=== PATIENT | female | born 1995 | race African-American/Black ===

== ENCOUNTER 2022-09-04 09:56 | Inpatient (IN) | payer MEDICAID ==
[~2022-09-04] VITALS: Ht 167.6 cm; Wt 66.5 kg
[2022-09-04] MEDS ORDERED: ARIP5TAB37 PO (10:08)
[2022-09-04] MEDS ORDERED: HYDR-3831 PO (10:08)
[2022-09-04] MEDS ORDERED: BUSP5TAB20 PO (10:08)
[2022-09-04] MEDS ORDERED: PROC5TAB54 PO (10:09)
[2022-09-04] MEDS ORDERED: BUPR-345 PO (10:09)
[2022-09-04] MEDS ORDERED: MIRT-89 PO (10:09)
[2022-09-04] MEDS ORDERED: PERP4TAB33 PO (10:49)
[2022-09-04] MEDS ORDERED: HYDR-4584 PO (10:49)
[2022-09-04] MEDS ORDERED: ATOM40CA9 PO (10:49)
[2022-09-04] MEDS ORDERED: TRIL8 PO (10:49)
[2022-09-04] MEDS ORDERED: BUPR-50 PO (10:49)
[2022-09-04] MEDS ORDERED: LAMO100 PO (10:49)
[2022-09-04 11:34] LABS: BASOPHILS % (AUTO) 0.4 % (0.0-2.0); EOSINOPHILS % (AUTO) 0 % (1.0-6.0); HEMATOCRIT 39.7 % (36-46); HEMOGLOBIN 13.3 g/dL (12.0-16.0); LYMPHOCYTES # (AUTO) 1.1 K/uL (1.0-4.8); LYMPHOCYTES % (AUTO) 20.7 % (22.0-44.0); MEAN CORPUSCULAR HEMOGLOBIN 30.9 pg (26.0-34.0); MEAN CORPUSCULAR HGB CONC 33.6 G/dL (31.0-37.0); MEAN CORPUSCULAR VOLUME 92 fL (80-100); MONOCYTES # (AUTO) 0.4 K/uL (0.1-1.0); MONOCYTES % (AUTO) 7.5 % (2.0-9.0); NEUTROPHILS # (AUTO) 3.8 K/uL (1.8-7.7); NEUTROPHILS % (AUTO) 71.4 % (40.0-70.0); PLATELET COUNT (AUTO) 274 K/uL (150-450); RED BLOOD CELL COUNT(AUTO) 4.32 MIL/uL (4.00-5.20); RED CELL DISTRIBUTION WIDTH 12.7 % (11.5-14.5)
[2022-09-04 11:36] LABS: COVID AG,FIA SOURCE NASAL SWAB
[2022-09-04 11:54] LABS: ANION GAP 5 mmol/L (8-16); CALCIUM, TOTAL 10.2 mg/dL (8.8-10.5); CARBON DIOXIDE 30 mmol/L (22-29); CHLORIDE 102 mmol/L (98-107); GLOMERULAR FILTR. RATE CALC > 60 mL/min (>60); GLUCOSE,RANDOM 98 mg/dL (70-110); SODIUM SERUM 137 mmol/L (136-145); UREA NITROGEN, BLOOD 7 mg/dL (7-18)
[2022-09-04 12:00] LABS: ALANINE AMINOTRANSFERASE 33 U/L (12-78); ALBUMIN 4.8 g/dL (3.4-5.0); ALKALINE PHOSPHATASE 138 U/L (46-116); ASPARTATE AMINOTRANSFERASE 22 U/L (15-37); BILIRUBIN,TOTAL 0.3 mg/dL (0.1-1.0); TOTAL PROTEIN, SERUM 8.6 g/dL (6.4-8.2)
[2022-09-04 12:26] LABS: AMPHET/METH SCREEN,URINE NEGATIVE (NEGATIVE); BARBITURATE SCREEN, URINE NEGATIVE (NEGATIVE); BENZODIAZEPINES SCREEN,URINE NEGATIVE (NEGATIVE); CANNABINOID SCREEN,URINE POSITIVE (NEGATIVE); COCAINE SCREEN,URINE NEGATIVE (NEGATIVE); METHADONE SCREEN, URINE NEGATIVE (NEGATIVE); OPIATE SCREEN,URINE NEGATIVE (NEGATIVE); PHENCYCLIDINE SCREEN,URINE NEGATIVE (NEGATIVE)
[2022-09-04] MEDS ORDERED: INFLUENZA VIRUS VACCINE QVS 2022-23 (6MO+)/PF 60 MCG/0.5 ML SYRINGE IM. ONE ×2 (17:30→20:15)
[2022-09-04] MEDS ORDERED: HALOPERIDOL 5 MG TABLET PO PRN (17:30)
[2022-09-04] MEDS ORDERED: ZOLPIDEM TARTRATE 10 MG TABLET PO PRN (17:30)
[2022-09-04 17:55] VITALS: BP 126/83
[2022-09-04] MEDS ORDERED: MELA5TAB40 PO (18:34)
[2022-09-04] MEDS: LORazepam 2 MG TABLET PO PRN ×2 (18:58→23:30)
[2022-09-04] MEDS ORDERED: POLYETHYLENE GLYCOL 3350 17 GM PACKET PO PRN (21:45)
[2022-09-05 05:40] VITALS: BP 125/88
[2022-09-05] MEDS ORDERED: ALBUTEROL SULFATE HFA 90 MCG/PUFF 8 GM INHALER IH PRN (07:30)
[2022-09-05] MEDS ORDERED: BACITRACIN 28 GM OINTMENT TP PRN (07:30)
[2022-09-05] MEDS ORDERED: PETROLATUM,WHITE 28 GM JELLY TP PRN (07:30)
[2022-09-05] MEDS ORDERED: BENZOCAINE/MENTHOL LOZENGE PO PRN (07:30)
[2022-09-05] MEDS ORDERED: DOCUSATE SODIUM 100 MG CAPSULE PO PRN (07:30)
[2022-09-05] MEDS ORDERED: MAGNESIUM HYDROXIDE SUSPENSION 30 ML UDCUP PO PRN (07:30)
[2022-09-05] MEDS ORDERED: LOPERAMIDE HCL 2 MG CAPSULE PO PRN (07:30)
[2022-09-05] MEDS ORDERED: IBUPROFEN 600 MG TABLET PO PRN (07:30)
[2022-09-05] MEDS ORDERED: MAG HYDROX/AL HYDROX/SIMETH ES 30 ML SUSPENSION UDCUP PO PRN (07:30)
[2022-09-05] MEDS ORDERED: ONDANSETRON HCL 4 MG TABLET PO PRN (07:30)
[2022-09-05] MEDS ORDERED: ACETAMINOPHEN 325 MG TABLET PO PRN (07:30)
[2022-09-05] MEDS ORDERED: CloNIDine HCL 0.1 MG TABLET PO PRN (07:30)
[2022-09-05] MEDS ORDERED: OMEPRAZOLE 20 MG CAPSULE PO PRN (07:30)
[2022-09-05 08:08] LABS: BASOPHILS % (AUTO) 0.4 % (0.0-2.0); EOSINOPHILS % (AUTO) 0 % (1.0-6.0); HEMATOCRIT 37.3 % (36-46); LYMPHOCYTES # (AUTO) 1.5 K/uL (1.0-4.8); LYMPHOCYTES % (AUTO) 23.5 % (22.0-44.0); MEAN CORPUSCULAR HEMOGLOBIN 31.9 pg (26.0-34.0); MEAN CORPUSCULAR HGB CONC 34.8 G/dL (31.0-37.0); MEAN CORPUSCULAR VOLUME 92 fL (80-100); MONOCYTES # (AUTO) 0.5 K/uL (0.1-1.0); MONOCYTES % (AUTO) 8.4 % (2.0-9.0); NEUTROPHILS # (AUTO) 4.4 K/uL (1.8-7.7); NEUTROPHILS % (AUTO) 67.7 % (40.0-70.0); PLATELET COUNT (AUTO) 281 K/uL (150-450); RED BLOOD CELL COUNT(AUTO) 4.07 MIL/uL (4.00-5.20); RED CELL DISTRIBUTION WIDTH 12.9 % (11.5-14.5)
[2022-09-05 08:22] VITALS: BP 128/83
[2022-09-05] MEDS ORDERED: POLYETHYLENE GLYCOL 3350 17 GM PACKET PO PRN (09:00)
[2022-09-05] MEDS ORDERED: BuPROPion HCL XL 150 MG ER TABLET PO SCH (10:00)
[2022-09-05] MEDS ORDERED: PERPHENAZINE 8 MG TABLET PO SCH ×2 (10:00→17:00)
[2022-09-05] MEDS ORDERED: ARIPiprazole 5 MG TABLET PO SCH (10:00)
[2022-09-05] MEDS: LamoTRIgine 100 MG TABLET PO SCH ×2 (10:57→16:12)
[2022-09-05] MEDS: BusPIRone HCL 5 MG TABLET PO SCH ×2 (10:58→16:12)
[2022-09-05] MEDS ORDERED: GUAN1TAB2 PO (11:17)
[2022-09-05] MEDS ORDERED: TraZODone HCL 50 MG TABLET PO PRN (12:30)
[2022-09-05] MEDS ORDERED: FLUTICASONE PROPIONATE 50 MCG/SPRAY 16 GM NASAL SPRAY NASAL PRN (13:00)
[2022-09-05 17:58] VITALS: BP 127/82
[2022-09-05] MEDS ORDERED: MIRTAZAPINE 15 MG TABLET PO SCH (21:00)
[2022-09-05] MEDS ORDERED: HydrOXYzine HCL 50 MG TABLET PO SCH (21:00)
[2022-09-05] MEDS ORDERED: MINERAL OIL 30 ML UDCUP PO SCH (21:00)
== END 2022-09-05 19:40 | disposition home or self-care (01) | DRG 753 ==
LOC: EMS 10:02 → B2S 17:17 → B3A 09-05 19:11
PROVIDERS: ADMIT Psychiatry & Neurology Psychiatry; ATTEND Psychiatry & Neurology Psychiatry
DX: F31.4 Bipolar disorder, current episode depressed, severe, without psychotic features (principal); R45.851 Suicidal ideations; F41.9 Anxiety disorder, unspecified; G47.00 Insomnia, unspecified; K59.00 Constipation, unspecified; Z20.822 Contact with and (suspected) exposure to COVID-19; Z79.899 Other long term (current) drug therapy; Z88.2 Allergy status to sulfonamides
CPT/HCPCS: 80053; 85025; 99285; G0480

== ENCOUNTER 2024-12-02 21:24 | Emergency (ER) | payer MEDICAID ==
[~2024-12-02] VITALS: Ht 170.2 cm; Wt 70.5 kg
[~2024-12-02 21:24] MED LIST: ARIP5TAB37 PO; BUPR-559 PO; BUSP5TAB20 PO; GUAN1TAB2 PO; HYDR-4584 PO; LAMO-24 PO; MIRT-89 PO; PERP4TAB33 PO; TRIL8 PO
[2024-12-02 21:50] LABS: APPEARANCE,URINE CLEAR (CLEAR); BILIRUBIN,URINE NEGATIVE (NEGATIVE); COLOR,URINE COLORLESS (YELLOW); GLUCOSE, URINE (UA) NEGATIVE (NEGATIVE); KETONES,URINE NEGATIVE (NEGATIVE); LEUKOCYTE ESTERASE ,URINE NEGATIVE (NEGATIVE); NITRATE,URINE NEGATIVE (NEGATIVE); OCCULT BLOOD,URINE NEGATIVE (NEGATIVE); PH,URINE 5.5 (5.0-8.0); PH,URINE DRUG SCREEN 5.5 (5.0-8.0); PROTEIN,URINE NEGATIVE (NEGATIVE); SPECIFIC GRAVITIY, URINE 1.002 (1.003-1.030); UROBILINOGEN,URINE <=1.0 mg/dL (<=1.0)
[2024-12-02 21:55] LABS: AMPHET/METH SCREEN,URINE NEGATIVE (NEGATIVE); BARBITURATE SCREEN, URINE NEGATIVE (NEGATIVE); BENZODIAZEPINES SCREEN,URINE NEGATIVE (NEGATIVE); CANNABINOID SCREEN,URINE POSITIVE (NEGATIVE); COCAINE SCREEN,URINE NEGATIVE (NEGATIVE); METHADONE SCREEN, URINE NEGATIVE (NEGATIVE); OPIATE SCREEN,URINE NEGATIVE (NEGATIVE); PHENCYCLIDINE SCREEN,URINE NEGATIVE (NEGATIVE)
[2024-12-02 21:57] LABS: BASOPHILS % (AUTO) 0.4 % (0.0-2.0); EOSINOPHILS % (AUTO) 0.3 % (1.0-6.0); HEMATOCRIT 36.8 % (36-46); HEMOGLOBIN 12.5 g/dL (12.0-16.0); LYMPHOCYTES # (AUTO) 1.6 K/uL (1.0-4.8); LYMPHOCYTES % (AUTO) 24.6 % (22.0-44.0); MEAN CORPUSCULAR HEMOGLOBIN 30.7 pg (26.0-34.0); MEAN CORPUSCULAR HGB CONC 33.9 G/dL (31.0-37.0); MEAN CORPUSCULAR VOLUME 91 fL (80-100); MONOCYTES # (AUTO) 0.6 K/uL (0.1-1.0); MONOCYTES % (AUTO) 8.8 % (2.0-9.0); NEUTROPHILS # (AUTO) 4.2 K/uL (1.8-7.7); NEUTROPHILS % (AUTO) 65.9 % (40.0-70.0); PLATELET COUNT (AUTO) 297 K/uL (150-450); RED BLOOD CELL COUNT(AUTO) 4.07 MIL/uL (4.00-5.20); RED CELL DISTRIBUTION WIDTH 12.4 % (11.5-14.5); WHITE BLOOD COUNT (AUTO) 6.3 K/uL (4.5-11.0)
[2024-12-02 21:59] LABS: ANION GAP 13 mmol/L (8-16); CALCIUM, TOTAL 9.5 mg/dL (8.8-10.5); CARBON DIOXIDE 26 mmol/L (22-29); CHLORIDE 102 mmol/L (98-107); CREATININE 1.13 mg/dL (0.60-1.30); GLOMERULAR FILTR. RATE CALC > 60 mL/min (>60); GLUCOSE,RANDOM 90 mg/dL (70-110); POTASSIUM 3.6 mmol/L (3.5-5.1); SODIUM SERUM 141 mmol/L (136-145); UREA NITROGEN, BLOOD 8 mg/dL (7-18)
[2024-12-02 22:04] LABS: ALCOHOL, URINE DRUG SCREEN NEGATIVE (NEGATIVE)
[2024-12-02 22:22] LABS: ALCOHOL, BLOOD (SERUM) < 3 mg/dL (0-10)
[2024-12-03] MEDS: LORazepam 2 MG TABLET PO ONE (01:01)
[2024-12-03 01:19] VITALS: BP 119/77; PULSE 86; RESP 16; TEMP 97.3; O2SAT 100
[2024-12-03 01:46] LABS: COVID AG,FIA SOURCE NASAL SWAB
[2024-12-03 01:50] LABS: SARS-COV2 (COVID) ANTIGEN,FIA Negative (Negative)
== END 2024-12-03 01:40 | disposition short-term general hospital (02) ==
LOC: EMS 21:24
DX: F41.9 Anxiety disorder, unspecified (principal); F31.9 Bipolar disorder, unspecified; Z79.899 Other long term (current) drug therapy; Z88.2 Allergy status to sulfonamides; Z20.822 Contact with and (suspected) exposure to COVID-19
CPT/HCPCS: 99285; 87426; 80048; 81003; 85025; 36415; 80307; G0480